=== PATIENT | male | born 1975 | race Caucasian/White ===

== ENCOUNTER 2023-12-23 18:27 | Observation (INO) | payer SELFPAY ==
[2023-12-23] VITALS (10 sets, daily range): BP systolic 144–218; BP diastolic 88–123; PULSE 58–102; RESP 15–18; TEMP 36.7–37.1; O2SAT 96–100; BMI 30.7
--- NOTE | 2023-12-23 18:27 | ECG_ITS ---
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 Measurements Intervals [place] Rate: 84 P: 34 [place]: 127 QRS: -34 QRSD: 88 T: 48 QT: 341 QTc: 404 Interpretive Statements SINUS RHYTHM LEFT AXIS DEVIATION [QRS AXIS < -30] SEPTAL MYOCARDIAL INFARCTION , OF INDETERMINATE AGE [40+ ms Q WAVE IN V1/V2] No previous ECG available for comparison Electronically Signed On 12-25-2023 00:05:48 CDT by Beatrice Preciado M.D. [email or web address]
--- NOTE | 2023-12-23 18:28 | XRR_ITS ---
PROCEDURE INFORMATION: Exam: XR Chest Exam date and time: 12/23/2023 6:49 PM Age: 48 years old Clinical indication: Chest pressure; Patient HX: Chest pain; Hypertension; Upper ext numbness TECHNIQUE: Imaging protocol: Radiologic exam of the chest. Views: 1 view. COMPARISON: No relevant prior studies available. FINDINGS: Lungs: Lungs appear clear without consolidation. Pleural spaces: No pneumothorax or pleural effusion. Heart/Mediastinum: Normal size of the cardiac silhouette. Normal mediastinal contours. Bones/joints: Mild degenerative changes at the acromioclavicular joints. Minimal scattered spinal degenerative change. XR/XR chest 1V portable [id number] IMPRESSION: No radiographically apparent acute cardiopulmonary disease.
[2023-12-23] MEDS: nitroglycerin 0.4 mg sublingual Tablet SUBLINGUAL (18:44)
[2023-12-23] MEDS: aspirin 81 mg Chew Tablet 324 MG PO (18:44)
--- NOTE | 2023-12-23 18:47 | ED_ITS ---
HPI - Chest Pain 2 General: Chief Complaint: Chest Pain Stated Complaint: High B/P, arm numbness sent by [facility] Time Seen by Provider: 12/23/23 18:29 Source: patient Mode of arrival: ambulatory Limitations: no limitations History of Present Illness: 48-year-old male with history of hyperte nsion states his blood pressure has been running high lately actually increased his benazepril from 20-40 he states that throughout the day today though he has been having some pressure type pain he says an upper chest with some numbness down both arms. He states never had any feelings like this in the past no history of known heart disease he has been hypertensive today as well blood pressure at urgent care was over 200 he had had an EKG there showed some lateral T wave inversions and sent here. States he still having some slight pressure pain he rates a 2 out of 10 denies any dyspnea Associated symptoms: Deny abdominal pain, dyspnea, fever(s), nausea or vomiting Related Data Home Medications Medication Instructions Recorded Confirmed benazepril 20 mg tablet mg PO 12/23/23 12/23/23 Allergies Allergy/AdvReac Type Severity Reaction Status Date / Time No Known Allergies Allergy Verified 12/23/23 18:34 Review of Systems 2 Const: Denies: fever(s), chills, body aches or change in appetite ENMT: Denies: throat pain or dental pain Card: Reports: chest pain Resp: Denies: dyspnea GI: Denies: abdominal pain, nausea, vomiting or diarrhea Musc: Denies: neck pain or back pain Skin/Breast: Denies: rash Neuro: Denies: headache(s) PFSH ED 2 PFSH: Social History Smoking and tobacco/nicotine status: current some day tobacco/nicotine user (marijuana) Physical Exam 2 Const: COMMON NORMALS: no acute distress, patient oriented x3 and healthy appearing HENMT: COMMON NORMALS: normocephalic and atraumatic HEAD & SCALP: n ormocephalic and atraumatic Eye: COMMON NORMALS: EOMs intact bilaterally Neck/C-Spine: COMMON NORMALS: full ROM and supple Chest: COMMONS NORMALS: normal inspection of the chest Resp: COMMON NORMALS: normal respiratory effort, No retractions, No use of accessory muscles and clear to auscultation bilaterally AUSCULTATION: clear to auscultation bilaterally Cardio: COMMON NORMALS: regular rate, regular rhythm and No murmurs present (Cardio) RATE: regular rate RHYTHM: regular rhythm Extremity: COMMON NORMALS: normal to inspection and full ROM Neuro: COMMON NORMALS: patient oriented x3, moves all extremities and no focal motor deficits Psych: COMMON NORMALS: mental status grossly normal, Normal thought process present and cooperative THOUGHT PROCESS: Normal thought process present Skin: COMMON NORMALS: no rashes or lesions noted and no wounds GENERAL SKIN EXAM: no rashes or lesions noted Course 2 Vital Signs: Vital signs: Vital Signs Temperature 98.7 F 12/23/23 18:34 Pulse Rate 71 12/23/23 21:00 Respiratory Rate 15 12/23/23 21:00 Blood Pressure 146/90 12/23/23 21:00 Pulse Oximetry 96 12/23/23 21:00 Oxygen Delivery Me thod Room Air 12/23/23 21:00 MDM - Chest Pain Medical Decision Making Patient presents here with chest pain his delta troponin is positive with NSTEMI will give him Lovenox I spoke to cardiology along with hospitalist will admit Medical Records I reviewed the patient's medical records. Lab Data I reviewed the patient's lab results. 12/23/23 18:45 12/23/23 18:45 Radiology Impressions Chest X-Ray 12/23/23 18:28 IMPRESSION: No radiographically apparent acute cardiopulmonary disease. Laboratory Results WBC 8.08 10^3/uL (3.29-11.43) 12/23/23 18:45 RBC 5.05 10^6/uL (3.85-5.65) 12/23/23 18:45 Hgb 16.00 g/dL (11.27-16.99) 12/23/23 18:45 Hct 46.2 % (37-53) 12/23/23 18:45 MCV 91.5 fl (82-101) 12/23/23 18:45 MCH 31.7 pg (27-33) 12/23/23 18:45 MCHC 34.6 g/dL (30-55) 12/23/23 18:45 RDW 11.9 % (12.1-15.1) L 12/23/23 18:45 Plt Count 314 10^3/cmm (157-399) 12/23/23 18:45 MPV 8.5 fL (7.4-10.4) 12/23/23 18:45 Neut % (Auto) 47.5 % 12/23/23 18:45 Lymph % (Auto) 36.1 % 12/23/23 18:45 [place] % (Auto) 11.6 % 12/23/23 18:45 Eos % (Auto) 3.6 % 12/23/23 18:45 Baso % (Auto) 1.0 % 12/23/23 18:45 Neut # (Auto) 3.83 10^3/uL (1.8-7.7) 12/23/23 18:45 Lymph # (Auto) 2.9 10^3/uL (0.8-4.8) 12/23/23 18:45 [place] # (Auto) 0.9 10^3/uL (0.2-0.9) 12/23/23 18:45 Eos # (Auto) 0.3 10^3/uL (0.0-0.8) 12/23/23 18:45 Baso # (Auto) 0.1 10^3/uL (0.0-0.1) 12/23/23 18:45 Nucleated RBC % (auto) 0 % 12/23/23 18:45 Nucleated RBCs # 0.0 /100WBC 12/23/23 18:45 PT 11.90 SECONDS (12.1-14.9) L 12/23/23 18:45 INR 0.85 (0.8-1.2) 12/23/23 18:45 Sodium 137 mmol/L (136-145) 12/23/23 18:45 Potassium 4.2 mmol/L (3.5-5.1) 12/23/23 18:45 Chloride 97 mmol/L (98-107) L 12/23/23 18:45 Carbon Dioxide 29 mmol/L (22-29) 12/23/23 18:45 Anion Gap 15.2 (5-19) 12/23/23 18:45 BUN 14 mg/dL (6-20) 12/23/23 18:45 Creatinine 1.0 mg/dL (0.7-1.2) 12/23/23 18:45 GFR Calculation 79.4 mL/min (90-130) L 12/23/23 18:45 Glucose 121 mg/dL (65-115) H 12/23/23 18:45 Calculated Osmolality 286 mOsm/kg (285-295) 12/23/23 18:45 Calcium 9.6 mg/dL (8.5-10.5) 12/23/23 18:45 Total Bilirubin 0.3 mg/dL (0.15-1.2) 12/23/23 18:45 AST 24 U/L (0-40) 12/23/23 18:45 ALT 48 U/L (0-41) H 12/23/23 18:45 Alkaline Phosphatase 68 U/L (40-130) 12/23/23 18:45 Troponin T Baseline 12 ng/L (0-15) 12/23/23 18:45 Troponin T 120 Minute 26.71 ng/L (0-15) H 12/23/23 20:42 Delta Troponin T 14.71 ABS# (0-10) H* 12/23/23 20:42 Total Protein 7.9 g/dL (6.6-8.7) 12/23/23 18:45 Albumin 5.0 g/dL (3.5-5.2) 12/23/23 18:45 Globulin 2.9 g/dL (1.3-4.6) 12/23/23 18:45 Lipase 47 U/L (13-60) 12/23/23 18:45 All radiology interpretation(s) finalized by discharge EKG Data EKG 1: I personally reviewed and interpreted this EKG as follows: EKG interpretation date: 12/23/23 EKG interpretation time: 18:27 Interpretation: nsr hr [address] elevation qrs 88 qtc 382 Discharge Plan Discharge Patient Disposition: Admitted As Inpatient Clinical Impression: Non-ST elevation [place] (NSTEMI) Condition: Stable Prescriptions: No Action benazepril 20 mg tablet PO Referrals: Tessa Nair MD [Primary Care Provider] - Coding Level of Care Code ED Certified Indoor Environmentalist for Chg Moustapha
[2023-12-23 19:00] LABS: Basophils # 0.1 10^3/uL (0.0-0.1); Eosinophils # 0.3 10^3/uL (0.0-0.8); Eosinophils % 3.6 %; Hematocrit 46.2 % (37-53); Lymphocytes # 2.9 10^3/uL (0.8-4.8); Lymphocytes % 36.1 %; Mean Corpuscular HGB Conc 34.6 g/dL (30-55); Mean Corpuscular Hemoglobin 31.7 pg (27-33); Mean Corpuscular Volume 91.5 fl (82-101); Mean Platelet Volume 8.5 fL (7.4-10.4); Monocytes # 0.9 10^3/uL (0.2-0.9); Monocytes % 11.6 %; Neutrophils # 3.83 10^3/uL (1.8-7.7); Neutrophils % 47.5 %; Nucleated Red Blood Cells % 0 %; Platelet Count 314 10^3/cmm (157-399); Red Blood Count 5.05 10^6/uL (3.85-5.65); Red Cell Distribution Width 11.9 % (12.1-15.1); White Blood Count 8.08 10^3/uL (3.29-11.43)
[2023-12-23 19:12] LABS: INR 0.85 (0.8-1.2)
[2023-12-23 19:17] LABS: Troponin(5th) Baseline 12 ng/L (0-15)
[2023-12-23 19:19] LABS: Alanine Aminotransferase 48 U/L (0-41); Alkaline Phosphatase 68 U/L (40-130); Aspartate Amino Transferase 24 U/L (0-40); Blood Urea Nitrogen 14 mg/dL (6-20); Calcium 9.6 mg/dL (8.5-10.5); Carbon Dioxide 29 mmol/L (22-29); Chloride 97 mmol/L (98-107); Creatinine Clr Calc Pharmacy 104.4321; Globulin 2.9 g/dL (1.3-4.6); Glomerular Filtration Rate 79.4 mL/min (90-130); Glucose 121 mg/dL (65-115); Lipase 47 U/L (13-60); Osmolality Calculated 286 mOsm/kg (285-295); Sodium 137 mmol/L (136-145); Total Bilirubin 0.3 mg/dL (0.15-1.2); Total Protein 7.9 g/dL (6.6-8.7)
[2023-12-23 19:29] LABS: Anion Gap 15.2 (5-19); Potassium 4.2 mmol/L (3.5-5.1)
--- NOTE | 2023-12-23 20:28 | ECG_ITS ---
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 Measurements Intervals [place] Rate: 67 P: 35 [place]: 138 QRS: -16 QRSD: 86 T: 152 QT: 405 QTc: 430 Interpretive Statements SINUS RHYTHM ST DEVIATION AND MODERATE T-WAVE ABNORMALITY, CONSIDER ANTEROLATERAL ISCHEMIA [-0.1+ mV T-WAVE IN V3-V6] Compared to ECG 12/23/2023 18:27:22 T-wave abnormality now present Possible ischemia now present Left-axis deviation no longer present Myocardial infarct finding no longer present Electronically Signed On 12-26-2023 00:50:22 CDT by Beatrice Preciado M.D. [id number]
[2023-12-23 21:03] LABS: Troponin 5 2HR 26.71 ng/L (0-15)
[2023-12-23 21:15] LABS: Troponin 5 2HR Delta 14.71 ABS# (0-10)
[2023-12-23] MEDS: enoxaparin 100 mg/mL Syringe SUBCUT (21:28)
--- NOTE | 2023-12-23 21:30 | P.HP_ITS ---
Providers/Chief Complaint 2 Primary Care Provider: Tessa Nair MD Chief Complaint: High B/P, arm numbness sent by History of Present Illness Rhett Dhaliwal is a 48 year old male with a past medical history significant for hypertension who presents emergency department with chest pressure. Patient reports initial symptoms started . They have been intermittent with about 5 episodes occurring since that time. He describes episodes as chest pressure sensation with numbness radiating down bilateral upper extremities. He states the pressure sensations feels like is behind his clavicles. He was seen by [facility] walk-in clinic where he was found to be hypertensive for which his URIEL inhibitor dose was doubled. Despite this, symptoms persisted for which he went to [facility] urgent care due to [facility] care being closed. At urgent care, he was found to have persistently elevated blood pressure with a blood pressure of 191/121. He was directed to the emergency department. Patient denies prior known history of coronary disease. Denies prior ischemic workup. In the emergency department, he was found to be markedly hypertensive with initial blood pressure 220/140. Baseline high-sensitivity troponin resulted at 12 ng/L with 2-hour troponin resulting at 26.71 ng/L resulting in a delta troponin of 14.71. Patient was treated with Plavix load and therapeutic Lovenox. Cardiology consulted with the evaluation pending. Review of Systems 2 Narrative: A complete review of systems was obtained and is negative except as stated in HPI. Medications/Allergies Home Medications Medication Instructions Recorded Confirmed Last Taken Type benazepril 20 mg tablet mg PO 12/23/23 12/23/23 Unknown History Allergies Allergy/AdvReac Type Severity Reaction Status Date / Time No Known Allergies Allergy Verified 12/23/23 18:34 PFSH Acute 2 PFSH: Medical History (Updated 12/23/23 @ 21:49 by Giorgi Ruff MD) Hypertension Surgical History (Updated 12/23/23 @ 21:50 by Giorgi Ruff MD) No significant past surgical history Family History (Updated 12/23/23 @ 21:50 by Giorgi Ruff MD) Father Hypertension Mother Hypertension Social History (Updated 12/23/23 @ 21:50 by Giorgi Ruff MD) Smoking and tobacco/nicotine status: never used tobacco/nicotine (marijuana) Alcohol intake: current Substance/Drug Use: never 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 Vitals/I&O/Wt Last Vital Signs Temp 98.7 F 12/23/23 18:34 Pulse 71 12/23/23 21:00 Resp 15 12/23/23 21:00 BP 146/90 12/23/23 21:00 Pulse Ox 96 12/23/23 21:00 O2 Del Method Room Air 12/23/23 21:00 Weight last 48 hrs Weight 97.069 kg Physical Exam 2 Narrative: General: Patient is awake and alert. Head: Normocephalic. Atraumatic. EOM intact. Neck: No JVD. Cardiovascular: RRR. No gallops. No murmurs. No peripheral edema. Lungs: Clear to auscultation, no use of accessory muscles, no crackles or wheezes. Skin: No jaundice. No rashes. Abdomen: Normal bowel sounds, abdomen soft and nontender. Genito Urinary: Genital exam not performed since complaints not related. Rectal: Rectal exam not performed since no symptoms indicated blood loss. Extremities: No cyanosis or clubbing. Musculoskeletal: 5/5 strength, normal range of motion, no swollen or erythematous joints. Neurological: Moves all 4 extremities. No myoclonus. Data 12/23/23 18:45 12/23/23 18:45 A&P Assessment and plan (1) Non-ST elevation [place] (NSTEMI): Chest pain with positive delta troponin Status post Plavix load in ED Start aspirin Start statin Start therapeutic Lovenox Check lipids and A1c for restratification Trend troponin Continuous telemetry monitoring Complete echocardiogram Consult cardiology pending (2) Hypertensive urgency: Blood pressure improving since presentation Continue formulary URIEL inhibitor May need additional oral agent pending clinical course Hydralazine as needed (3) Transaminitis: Very mild, suspect related to beer intake Plan DVT prophylaxis: Lovenox CODE STATUS: Full code Attestations 2 Medical Necessity Statement*: Patient presents with chest pain found to have positive delta troponin with expected hospitalization not to cross 2 midnights for workup with serial troponins, echo, and treatment of acute coronary syndrome with IV heparin, antiplatelet, statin, cardiology evaluation and supportive care. Coding Level of Care Code Acute Code for [facility] Fwd Diagnoses Non-ST elevation [place] (NSTEMI) I21.4 Hypertensive urgency I16.0 Transaminitis R74.01
[2023-12-23] MEDS: clopidogrel 300 mg Tablet PO (21:43)
--- NOTE | 2023-12-23 22:09 | P.CONIM_ITS ---
Providers/Reason For Consult 2 Consulting Physician/Specialty*: TONY Preciado MD/cardiology Reason for Consult*: Patient with a prolonged episode of the chest pain Requesting Physician: Dr. Ruff Attending Physician: Giorgi Ruff MD Primary Care Provider: Tessa Nair MD History of Present Illness History of Present Illness Rhett Dhaliwal is a 48 year old male presenting with numbness in both arms and elevated blood pressure. The patient has experienced episodes of arm numbness, initially noted on morning, each lasting approximately an hour, with similar episodes occurring on Monday morning and Monday evening. No chest, neck, or back pain was reported. He denied shortness of breath, but attributes some fogginess and lightheadedness over the past two weeks. These symptoms began after returning from a trip to [place]. Although the patient has been historically hypertensive since his late 30s, he only commenced antihypertensive medication six months ago, resulting in well-controlled blood pressure readings. The episodes of numbness typically resolved spontaneously, but a nitroglycerin tablet provided immediate relief during the latest episode in the emergency setting. He visited a walk-in clinic on Monday, where his antihypertensive medication dosage was increased without further cardiac evaluation. No prior history of heart-related events was noted, although his mother has hypertension. The patient admitted to regular beer consumption since adolescence, maintaining a habit of consuming six beers nightly, although he is endeavoring to reduce his intake following medical advice. No history of smoking or high cholesterol needing pharmacological intervention was reported. No significant family history. No smoking abuse or any other substance abuse. Review of Systems 2 Narrative: CONSTITUTIONAL: No fever or chills. EYES: No blurring of vision or other visual disturbances lately. ENT: No hoarseness of voice, auditory disturbances or sore throat. CARDIOVASCULAR: As mentioned above. RESPIRATORY: No significant cough. GASTROINTESTINAL: No hematemesis or melena. GENITOURINARY: No dysuria or hematuria. INTEGUMENTARY: No skin rashes or history of skin cancer. NEURO: No transient ischemic attacks or amaurosis. PSYCHIATRIC: No history of psychosis or major depression. HEMATOLOGIC: No bleeding disorders or significant anemia. ENDOCRINE: No history of polyuria or polydipsia. MUSCULOSKELETAL: No recent joint pain or swelling. ALLERGY/IMMUNOLOGY: As mentioned above. Medications/Allergies Home Medications Medication Instructions Recorded Confirmed Last Taken Type benazepril 20 mg tablet 20 mg PO BID 12/23/23 12/23/23 Unknown History Allergies Allergy/AdvReac Type Severity Reaction Status Date / Time No Known Allergies Allergy Verified 12/23/23 18:34 Current Medications Generic Name Dose Route Start Last Admin Trade Name Freq PRN Reason Stop Dose Admin Nitroglycerin 0.4 mg 12/23/23 18:28 12/23/23 18:44 Nitroglycerin 0.4 Mg Sublingual Tablet SUBLINGUAL 0.4 mg Q5M PRN Administration CHEST PAIN PFSH Acute 2 PFSH: Medical History Hypertension Surgical History No significant past surgical history Family History Father Hypertension Mother Hypertension Social History Smoking and tobacco/nicotine status: never used tobacco/nicotine (marijuana) Alcohol intake: current Substance/Drug Use: never 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 Vitals/I&O/Wt Last Vital Signs Temp 98.7 F 12/23/23 18:34 Pulse 67 12/23/23 21:37 Resp 18 12/23/23 21:37 BP 150/88 12/23/23 21:37 Pulse Ox 99 12/23/23 21:37 O2 Del Method Room Air 12/23/23 21:37 Weight last 48 hrs Weight 214 lb Physical Exam 2 Narrative: GENERAL: The patient is alert and oriented times three. Not in any acute distress. HEENT: No significant pallor, icterus or lymphadenopathy.Oral cavity: There are no mucous membrane lesions. NECK: Trachea appears to be central. No masses noted. No JVD or thyromegaly appreciated. RESPIRATORY: Chest is symmetrical. No intercostals muscle retraction or any accessory muscle activation. There is no chest wall tenderness. Breath sounds are heard bilaterally. No rales or rhonchi heard. No evidence of any consolidation. BREASTS: Deferred. HEART: The heart sounds are normal. No S3 or S4. No significant murmurs. No pericardial rub ABDOMEN: No vessel pulsations or distention. No tenderness. No organomegaly appreciated. Bowel sounds are normally heard. : Deferred. RECTAL: Deferred. LYMPHATIC: No lymphadenopathy noted in the neck. EXTREMITIES: No edema or cyanosis. No clubbing. MUSCULOSKELETAL: No acute joint deformities or swelling SKIN: There are no significant rashes or ecchymosis NEUROPSYCHIATRIC: The patient is alert and oriented x3. Appears to be in a good mood. No tremors or rigidity noted. Data 12/23/23 18:45 12/23/23 18:45 Other Labs: Laboratory Last Values WBC 8.08 10^3/uL (3.29-11.43) 12/23/23 18:45 RBC 5.05 10^6/uL (3.85-5.65) 12/23/23 18:45 Hgb 16.00 g/dL (11.27-16.99) 12/23/23 18:45 Hct 46.2 % (37-53) 12/23/23 18:45 MCV 91.5 fl (82-101) 12/23/23 18:45 MCH 31.7 pg (27-33) 12/23/23 18:45 MCHC 34.6 g/dL (30-55) 12/23/23 18:45 RDW 11.9 % (12.1-15.1) L 12/23/23 18:45 Plt Count 314 10^3/cmm (157-399) 12/23/23 18:45 MPV 8.5 fL (7.4-10.4) 12/23/23 18:45 Neut % (Auto) 47.5 % 12/23/23 18:45 Lymph % (Auto) 36.1 % 12/23/23 18:45 [place] % (Auto) 11.6 % 12/23/23 18:45 Eos % (Auto) 3.6 % 12/23/23 18:45 Baso % (Auto) 1.0 % 12/23/23 18:45 Neut # (Auto) 3.83 10^3/uL (1.8-7.7) 12/23/23 18:45 Lymph # (Auto) 2.9 10^3/uL (0.8-4.8) 12/23/23 18:45 [place] # (Auto) 0.9 10^3/uL (0.2-0.9) 12/23/23 18:45 Eos # (Auto) 0.3 10^3/uL (0.0-0.8) 12/23/23 18:45 Baso # (Auto) 0.1 10^3/uL (0.0-0.1) 12/23/23 18:45 Nucleated RBC % (auto) 0 % 12/23/23 18:45 Nucleated RBCs # 0.0 /100WBC 12/23/23 18:45 PT 11.90 SECONDS (12.1-14.9) L 12/23/23 18:45 INR 0.85 (0.8-1.2) 12/23/23 18:45 Sodium 137 mmol/L (136-145) 12/23/23 18:45 Potassium 4.2 mmol/L (3.5-5.1) 12/23/23 18:45 Chloride 97 mmol/L (98-107) L 12/23/23 18:45 Carbon Dioxide 29 mmol/L (22-29) 12/23/23 18:45 Anion Gap 15.2 (5-19) 12/23/23 18:45 BUN 14 mg/dL (6-20) 12/23/23 18:45 Creatinine 1.0 mg/dL (0.7-1.2) 12/23/23 18:45 GFR Calculation 79.4 mL/min (90-130) L 12/23/23 18:45 Glucose 121 mg/dL (65-115) H 12/23/23 18:45 Calculated Osmolality 286 mOsm/kg (285-295) 12/23/23 18:45 Calcium 9.6 mg/dL (8.5-10.5) 12/23/23 18:45 Total Bilirubin 0.3 mg/dL (0.15-1.2) 12/23/23 18:45 AST 24 U/L (0-40) 12/23/23 18:45 ALT 48 U/L (0-41) H 12/23/23 18:45 Alkaline Phosphatase 68 U/L (40-130) 12/23/23 18:45 Troponin T Baseline 12 ng/L (0-15) 12/23/23 18:45 Troponin T 120 Minute 26.71 ng/L (0-15) H 12/23/23 20:42 Delta Troponin T 14.71 ABS# (0-10) H* 12/23/23 20:42 Total Protein 7.9 g/dL (6.6-8.7) 12/23/23 18:45 Albumin 5.0 g/dL (3.5-5.2) 12/23/23 18:45 Globulin 2.9 g/dL (1.3-4.6) 12/23/23 18:45 Lipase 47 U/L (13-60) 12/23/23 18:45 EKG 1: My Interpretation: Normal sinus rhythm with diffuse T wave changes in the anterolateral leads. Minimal left axis deviation. T wave changes appears to be fluctuating A&P Assessment and plan (1) Acute coronary syndrome: Patient is a clinical features are consistent with acute coronary syndrome causing [id number] myocardial infarction. Hemodynamically seems to be stable. He may have treated with the subcu Lovenox, aspirin, 300 mg of Plavix followed by 70 mg Plavix daily, statin and a low-dose of beta-bakari. (2) Benign hypertension: The antihypertensive medications need to be optimized. (3) Dyslipidemia: The cholesterol level is not known. May do a lipid profile on the blood in the lab. I may start him on Lipitor 40 mg p.o. daily. (4) History of alcohol abuse: Strongly advised to quit drinking. Plan Go ahead and do an echocardiogram to evaluate the LV function and rule out any other pathology. Serial cardiac enzymes and EKGs. Continue therapeutic dose of subcu Lovenox, p.o. Plavix, aspirin, beta-bakari and statin. Based on the clinical progress and the results of the above, further recommendations will be made. Thank you for the opportunity to evaluate this patient and make these recommendations Consult Attestations 2 Medical Necessity Statement: Patient requires continued hospital stay for close monitoring and further management Coding Level of Care Code 49892 Diagnoses Acute coronary syndrome I24.9 Benign hypertension I10 Dyslipidemia E78.5 History of alcohol abuse F10.11
[2023-12-23 22:30] LABS: Chol HDL Ratio 4.65 mg/dL (1.0-5.00); Cholesterol 256 mg/dL (0-200); HDL Cholesterol 55 mg/dL (60-100); LDL Cholesterol Calculated 157 mg/dL (50-129); LDL HDL Ratio 2.85 RATIO (0.00-3.22); Triglycerides 221 mg/dL (0-150)
[2023-12-23 22:33] LABS: Estmated Average Glucose 111; Hemoglobin A1C 5.5 % (4.0-6.0)
[2023-12-24] VITALS (57 sets, daily range): BP systolic 104–174; BP diastolic 65–106; PULSE 60–88; RESP 11–23; TEMP 36.6–37.3; O2SAT 94–98
--- NOTE | 2023-12-24 00:14 | ECG_ITS ---
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 Measurements Intervals [place] Rate: 71 P: 38 [place]: 140 QRS: -12 QRSD: 92 T: 198 QT: 404 QTc: 440 Interpretive Statements SINUS RHYTHM ST DEVIATION AND MODERATE T-WAVE ABNORMALITY, CONSIDER ANTEROLATERAL ISCHEMIA [-0.1+ mV T-WAVE IN V3-V6] Compared to ECG 12/23/2023 20:53:09 No significant changes Electronically Signed On 12-26-2023 00:50:16 CDT by Beatrice Preciado M.D. [email or web address]
[2023-12-24 04:33] LABS: Troponin 5 6HR 19.51 ng/L (0-15); Troponin 5 6HR Delta 7.51 ng/L (0-12)
[2023-12-24] MEDS: enoxaparin 100 mg/mL Syringe SUBCUT ×2 (08:21→20:41)
[2023-12-24] MEDS: aspirin 81 mg EC Tablet PO (08:22)
[2023-12-24] MEDS: lisinopril 20 mg Tablet PO ×2 (08:22→18:11)
[2023-12-24] MEDS: metoprolol tartrate 25 mg Tablet 12.5 MG PO (08:22)
--- NOTE | 2023-12-24 12:25 | PM.PN ---
Subjective Subjective: He reports he is doing better. Any pain or discomfort has resolved. He is spoken with cardiology, based on assessment and his condition they have plan for further assessment by coronary angiography this afternoon. Vitals/I&O/Wt Last Vital Signs Temp 97.9 F 12/24/23 11:08 Pulse 71 12/24/23 11:08 Resp 15 12/24/23 11:08 BP 156/102 12/24/23 11:08 Pulse Ox 97 12/24/23 11:08 O2 Del Method Room Air 12/24/23 11:08 12/23/23 12/24/23 12/24/23 22:59 06:59 14:59 Intake Total 360 / 360 Output Total 0 / 0 Balance 0 / 0 360 / 360 Weight last 48 hrs Weight 99.337 kg Weight 97.069 kg Weight 97.069 kg Physical Exam Const: COMMON NORMALS: patient oriented x3 and alert GENERAL APPEARANCE: cooperative ORIENTATION/CONSCIOUSNESS: Yes awake OTHER: Pleasant, conversant, in good spirits. HENMT: COMMON NORMALS: oropharynx normal Neck/C-Spine: COMMON NORMALS: no JVD Resp: COMMON NORMALS: normal respiratory effort and clear to auscultation bilaterally AUSCULTATION: clear to auscultation bilaterally Cardio: COMMON NORMALS: no JVD, regular rhythm, S1 normal heart sound present, S2 normal heart sound present and No murmurs present (Cardio) RHYTHM: regular rhythm HEART SOUNDS: S1 normal heart sound present and S2 normal heart sound present GI: COMMON NORMALS: Normal to inspection, nondistended, normoactive bowel sounds present, Soft to palpation and non-tender PALPATION: Yes Soft to palpation Extremity: COMMON NORMALS: no joint enlargement and no pedal edema Neuro: COMMON NORMALS: patient oriented x3 and moves all extremities SENSORIUM/ORIENTATION: Yes alert Skin: COMMON NORMALS: no rashes or lesions noted GENERAL SKIN EXAM: no rashes or lesions noted Data 12/23/23 18:45 12/23/23 18:45 A&P Assessment and plan (1) Non-ST elevation SD (NSTEMI): Reviewed vitals, CBC, INR, CMP, troponin series, lipase,CXR, echocardiogram, cardiology note. 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 Resume Plavix. Continues on aspirin, statin, beta-bakari, continues with therapeutic anticoagulation. Monitor for risk of bleeding with anticoagulation, reassess blood counts. Continue to monitor on telemetry with NSTEMI with risk of arrhythmia. Follow-up coronary angiography. (2) Hypertensive urgency: Reviewed blood pressure, with improvement to 156/102. Continue lisinopril. Metoprolol. Add amlodipine. Blood pressure improving since presentation Continue formulary URIEL inhibitor May need additional oral agent pending clinical course Hydralazine as needed (3) Transaminitis: Very mild, possibly secondary to hypertensive urgency versus suspected related to beer intake Repeat CMP. Follow-up with PCP. Plan DVT prophylaxis: Lovenox CODE STATUS: Full code Attestations Medical Necessity Statement*: Continue hospitalization for assessment management of NSTEMI, optimization of blood pressure control after hypertensive urgency. and High MDM includes amount and/or complexity of data reviewed/ordered [ resulted lab(s)/test(s), ordered lab(s)/test(s) and other healthcare professional discussion] and described risk of complication, morbidity or mortality of management as documented Diagnoses Non-ST elevation SD (NSTEMI) I21.4 Hypertensive urgency I16.0 Transaminitis R74.01
--- NOTE | 2023-12-24 13:52 | P.PN_ITS ---
Subjective 2 Subjective: The patient has any recurrence of chest pain or arm numbness, since last night. The vitals are stable. The echocardiogram revealed normal LV size and ejection fraction. Mild card ventricular to light hypertrophy. No significant wall motion normalities. Features of grade 1 left ventricular ejection fraction's function. Medications: Medication Review Details: Current Medications Acetaminophen (Acetaminophen 325 Mg Tablet) 650 mg PO Q6H PRN PRN Reason: Mild/Mod Pain Or Temp >/= 101 Amlodipine Besylate (Amlodipine 5 Mg Tablet) 5 mg PO DAILY [facility] Aspirin (Aspirin 81 Mg Ec Tablet) 81 mg PO DAILY [facility] Last Admin: 12/24/23 08:22 Dose: 81 mg Atorvastatin Calcium (Atorvastatin 40 Mg Tablet) 40 mg PO BEDTIME VERONICA Clopidogrel Bisulfate (Clopidogrel 75 Mg Tablet) 75 mg PO DAILY [facility] Diphenhydramine HCl (Diphenhydramine 50 Mg Capsule) 50 mg PO ONCE ONE Stop: 12/24/23 14:01 Enoxaparin Sodium (Enoxaparin 100 Mg/Ml Syringe) 100 mg 1 mg/kg (100 mg) SUBCUT Q12H [facility] Last Admin: 12/24/23 08:21 Dose: 100 mg Hydralazine HCl (Hydralazine 20 Mg/Ml Inj 1 Ml) 10 mg IVP Q4H PRN PRN Reason: SBP>180mmHg or DBP>110mmHG Sodium Chloride (Sodium Chloride 0.9%) 1,000 mls @ 50 mls/hr IV .Q20H ONE Stop: 12/25/23 09:59 Lisinopril (Lisinopril 20 Mg Tablet) 20 mg PO BID [facility] Last Admin: 12/24/23 08:22 Dose: 20 mg Metoprolol Tartrate (Metoprolol Tartrate 25 Mg Tablet) 12.5 mg PO BID@0900,2100 [facility] Last Admin: 12/24/23 08:22 Dose: 12.5 mg Morphine Sulfate (Morphine 4 Mg/Ml Sdv 1 Ml) 2 mg IVP Q4H PRN PRN Reason: SEVERE PAIN Nitroglycerin (Nitroglycerin 0.4 Mg Sublingual Tablet) 0.4 mg SUBLINGUAL Q5M PRN PRN Reason: CHEST PAIN Last Admin: 12/23/23 18:44 Dose: 0.4 mg Ondansetron HCl (Ondansetron 2 Mg/Ml Sdv 2 Ml) 4 mg IVP Q8H PRN PRN Reason: vomiting, or N/V if npo Ondansetron HCl (Ondansetron 4 Mg Tablet) 4 mg PO Q8H PRN PRN Reason: NAUSEA Vitals/I&O/Wt Last Vital Signs Temp 97.9 F 12/24/23 11:08 Pulse 71 12/24/23 11:08 Resp 15 12/24/23 11:08 BP 156/102 12/24/23 11:08 Pulse Ox 97 12/24/23 11:08 O2 Del Method Room Air 12/24/23 11:08 12/23/23 12/24/23 12/24/23 22:59 06:59 14:59 Intake Total 360 / 360 Output Total 0 / 0 Balance 0 / 0 360 / 360 Weight last 48 hrs Weight 219 lb Weight 214 lb Weight 214 lb Physical Exam 2 Narrative: GENERAL: The patient is alert and oriented times three. Not in any acute distress. HEENT: No significant pallor, icterus or lymphadenopathy.Oral cavity: There are no mucous membrane lesions. NECK: Trachea appears to be central. No masses noted. No JVD or thyromegaly appreciated. RESPIRATORY: Chest is symmetrical. No intercostals muscle retraction or any accessory muscle activation. There is no chest wall tenderness. Breath sounds are heard bilaterally. No rales or rhonchi heard. No evidence of any consolidation. BREASTS: Deferred. HEART: The heart sounds are normal. No S3 or S4. No significant murmurs. No pericardial rub ABDOMEN: No vessel pulsations or distention. No tenderness. No organomegaly appreciated. Bowel sounds are normally heard. : Deferred. RECTAL: Deferred. LYMPHATIC: No lymphadenopathy noted in the neck. EXTREMITIES: No edema or cyanosis. No clubbing. MUSCULOSKELETAL: No acute joint deformities or swelling SKIN: There are no significant rashes or ecchymosis NEUROPSYCHIATRIC: The patient is alert and oriented x3. Appears to be in a good mood. No tremors or rigidity noted. Data 12/23/23 18:45 12/23/23 18:45 Other Labs: Laboratory Last Values WBC 8.08 10^3/uL (3.29-11.43) 12/23/23 18:45 RBC 5.05 10^6/uL (3.85-5.65) 12/23/23 18:45 Hgb 16.00 g/dL (11.27-16.99) 12/23/23 18:45 Hct 46.2 % (37-53) 12/23/23 18:45 MCV 91.5 fl (82-101) 12/23/23 18:45 MCH 31.7 pg (27-33) 12/23/23 18:45 MCHC 34.6 g/dL (30-55) 12/23/23 18:45 RDW 11.9 % (12.1-15.1) L 12/23/23 18:45 Plt Count 314 10^3/cmm (157-399) 12/23/23 18:45 MPV 8.5 fL (7.4-10.4) 12/23/23 18:45 Neut % (Auto) 47.5 % 12/23/23 18:45 Lymph % (Auto) 36.1 % 12/23/23 18:45 [place] % (Auto) 11.6 % 12/23/23 18:45 Eos % (Auto) 3.6 % 12/23/23 18:45 Baso % (Auto) 1.0 % 12/23/23 18:45 Neut # (Auto) 3.83 10^3/uL (1.8-7.7) 12/23/23 18:45 Lymph # (Auto) 2.9 10^3/uL (0.8-4.8) 12/23/23 18:45 [place] # (Auto) 0.9 10^3/uL (0.2-0.9) 12/23/23 18:45 Eos # (Auto) 0.3 10^3/uL (0.0-0.8) 12/23/23 18:45 Baso # (Auto) 0.1 10^3/uL (0.0-0.1) 12/23/23 18:45 Nucleated RBC % (auto) 0 % 12/23/23 18:45 Nucleated RBCs # 0.0 /100WBC 12/23/23 18:45 PT 11.90 SECONDS (12.1-14.9) L 12/23/23 18:45 INR 0.85 (0.8-1.2) 12/23/23 18:45 Sodium 137 mmol/L (136-145) 12/23/23 18:45 Potassium 4.2 mmol/L (3.5-5.1) 12/23/23 18:45 Chloride 97 mmol/L (98-107) L 12/23/23 18:45 Carbon Dioxide 29 mmol/L (22-29) 12/23/23 18:45 Anion Gap 15.2 (5-19) 12/23/23 18:45 BUN 14 mg/dL (6-20) 12/23/23 18:45 Creatinine 1.0 mg/dL (0.7-1.2) 12/23/23 18:45 GFR Calculation 79.4 mL/min (90-130) L 12/23/23 18:45 Glucose 121 mg/dL (65-115) H 12/23/23 18:45 Estimat Average Glucose 111 12/23/23 18:45 Hemoglobin A1c 5.5 % (4.0-6.0) 12/23/23 18:45 Calculated Osmolality 286 mOsm/kg (285-295) 12/23/23 18:45 Calcium 9.6 mg/dL (8.5-10.5) 12/23/23 18:45 Total Bilirubin 0.3 mg/dL (0.15-1.2) 12/23/23 18:45 AST 24 U/L (0-40) 12/23/23 18:45 ALT 48 U/L (0-41) H 12/23/23 18:45 Alkaline Phosphatase 68 U/L (40-130) 12/23/23 18:45 Troponin T Baseline 12 ng/L (0-15) 12/23/23 18:45 Troponin T 120 Minute 26.71 ng/L (0-15) H 12/23/23 20:42 Delta Troponin T 14.71 ABS# (0-10) H* 12/23/23 20:42 Troponin T Hi Sens 6Hr 19.51 ng/L (0-15) H 12/24/23 03:44 Troponin T Hi Sens 6Hr Delta 7.51 ng/L (0-12) 12/24/23 03:44 Total Protein 7.9 g/dL (6.6-8.7) 12/23/23 18:45 Albumin 5.0 g/dL (3.5-5.2) 12/23/23 18:45 Globulin 2.9 g/dL (1.3-4.6) 12/23/23 18:45 Triglycerides 221 mg/dL (0-150) H 12/23/23 18:45 Cholesterol 256 mg/dL (0-200) H 12/23/23 18:45 LDL Cholesterol, Calc 157 mg/dL (50-129) H 12/23/23 18:45 HDL Cholesterol 55 mg/dL (60-100) L 12/23/23 18:45 LDL/HDL Ratio 2.85 RATIO (0.00-3.22) 12/23/23 18:45 Cholesterol/HDL Ratio 4.65 mg/dL (1.0-5.00) 12/23/23 18:45 Lipase 47 U/L (13-60) 12/23/23 18:45 Other data: Echocardiogram from today Normal left ventricular size and systolic function, EF 65%.. Mild left ventricular hypertrophy. Grade I/IV diastolic dysfunction (abnormal relaxation filling pattern), normal to mildly elevated filling pressures. Trace of mitral and tricuspid regurgitation Estimated pulmonary artery peak systolic pressure within normal limits. There is no pericardial effusion. There are no intracardiac masses. No similar previous studies are available for comparison A&P Assessment and plan (1) Acute coronary syndrome: Patient is a clinical features are consistent with acute coronary syndrome causing cya-GS-bodcmzeni myocardial infarction. Hemodynamically seems to be stable. He may have treated with the subcu Lovenox, aspirin, 300 mg of Plavix followed by 75 mg Plavix daily, statin and a low-dose of beta-bakari. The patient seems to be tolerating medication so far well. May continue on the current treatment. (2) Benign hypertension: The antihypertensive medications need to be optimized. I may discontinue the metoprolol and start him on carvedilol 12.5 mg p.o. twice daily (3) Dyslipidemia: Patient was found to have elevated LDL of 156. I may start the patient on high- dose of statin Nehal 80 mg Lipitor daily (4) History of alcohol abuse: Strongly advised to quit drinking. Plan Carvedilol 12.5 mg p.o. twice daily. Discontinue the metoprolol. Increase the Lipitor to 80 mg p.o. daily In view of the patient's factors and the presenting symptoms, in order to further evaluate his coronary status, a cardiac catheterization would be appropriate. This was discussed with the patient and his in detail. The risks and benefits were discussed. The risk of bleeding, hematoma, vascular injury, myocardial infarction, myocardial perforation, malignant cardiac arrhythmias ,CVA, renal failure and other concomitant complications were explained in detail. Patient understood this well and consented to proceed. We may go ahead and do scheduled this for sometime this afternoon. Based on the results of the above tests and the patient's clinical progress, further recommendations will be made. Attestations 2 Medical Necessity Statement*: Patient requires continued hospital stay for close monitoring and further management Coding Level of Care Code 91887 Diagnoses Acute coronary syndrome I24.9 Benign hypertension I10 Dyslipidemia E78.5 History of alcohol abuse F10.11
[2023-12-24] MEDS: clopidogrel 75 mg Tablet PO (14:09)
[2023-12-24] MEDS: amlodipine 5 mg Tablet PO (14:09)
[2023-12-24] MEDS: diphenhydrAMINE 50 mg Capsule PO (14:10)
[2023-12-24] MEDS: sodium chloride 0.9% 1,000 ML 50 ML IV (14:11)
--- NOTE | 2023-12-24 14:11 | XACV_ITS ---
Exam Room: [facility] Ht: 178 cm Wt: 99 kg BSA: 2.24 m2 Gender: Male : 1975 Any Known Allergies: No known allergies Exam Priority: Routine Procedure(s): Procedure Description: Diagnostic procedure Procedure Description: PCI procedure Procedure Description: Left Heart Catheterization Procedure Description: Left ventriculography Procedure Description: Drug Eluting Coronary Stent Procedure Description: Miscellaneous Procedure Description: Coronary Angiography Ozzy GRAYSON; Diagnostic Cath Status: Urgent Diagnostic Findings * There is no left main. The left left anterior descending artery and the circumflex artery were found to have separate ostia. * The ostium of the left left anterior descending artery was found to be inferior and lateral to the ostium of the circumflex artery. There is a high-grade around 85% lesion at the takeoff of the first diagonal branch. Minimal intimal irregularities were noted in the mid and distal artery. The first diagonal branch was found to have around 40% narrowing proximally, involving the ostium. * The left circumflex artery was a moderate to large caliber dominant vessel. Minimal intimal irregularities were noted in the midportion. No significant stenotic lesions.. * The right coronary artery is a nondominant vessel with no significant stenotic lesions. PCI Status: Urgent PCI Indication: New Onset Angina <= 2 months Interventional Findings * Successful PCI to mid LAD. 2 wires were inserted 1 in diagonal branch since it is a bifurcating lesion other in mid LAD. Mid LAD lesion was prepared with 2.0 x 12 mm Trek balloon, followed by deployment of [place]] [3.0x 18 mm stent posted at high MALLY of 12 mm. Stent was then post-dilated with serial dilatation of NC Euphora 3.5 x 12 at 12 MALLY in its entire length to ensure proper approximation. Excellent angiographic result with MARIA DEL CARMEN-3 flow was achieved. Diagonal branch was not pinched and widely open at the end of the case. Conclusions 1. Successful PCI to mid LAD. 2 wires were inserted 1 in diagonal branch since it is a bifurcating lesion other in mid LAD. Mid LAD lesion was prepared with 2.0 x 12 mm Trek balloon, followed by deployment of Aneesh] [3.0x 18 mm stent posted at high MALLY of 12 mm. Stent was then post-dilated with serial dilatation of NC Euphora 3.5 x 12 at 12 MALLY in its entire length to ensure proper approximation. Excellent angiographic result with MARIA DEL CARMEN-3 flow was achieved. Diagonal branch was not pinched and widely open at the end of the case. 2. 47-year-old white male with history of hypertension and untreated dyslipidemia, presenting with the complaints of bilateral arm pain and elevated troponin T. T wave changes in the anterolateral leads. Cardiac catheterization revealing high-grade lesion in the proximal to mid LAD. Separate ostia for the left anterior descending artery and circumflex artery. Nondominant right coronary artery. LVEDP of 15 mmHg. 3. Reviewed and discussed the cardiac catheterization data with Dallin Collins. It was thought to be appropriate to consider PCI of the LAD lesion. Dr. Collins took over further management of this patient at this point. Recommendations * 1-Return to inpatient for close monitoring and routine cath care 2-Risk factor modification for secondary prevention 3-Statin and aspirin 81 mg life-long, if tolerated 4-Patient was pre-loaded with 600 mg of Plavix, continue Plavix 75mg p.o. daily for at least one year. We will assess at the end of one year again to continue if further or not 5-Continue optimal medical management 6-Follow up with Dr. Preciado in four weeks, cardiology nurse practitioner in 1 week and your primary care in 15 days. Interventional RX Recommendation: PCI w/o planned CABG Diagnostic RX Recommendation: PCI w/o planned CABG LV EDP: 15 mmHg Left Ventriculography Findings: * LV gram was not performed because of the concern about the dye overload. The LVEDP was 15 mmHg. Pressures Phase:Rest AO : / ( 0 ) @ 3:50:00 PM 12 / 0 ( 0 ) @ 4:11:00 PM 133 / 91 ( 108 ) @ 4:11:00 PM 147 / 93 ( 118 ) @ 4:45:00 PM 148 / 90 ( 116 ) @ 4:45:00 PM LV : 151 / -7 / 15 @ 4:44:00 PM 156 / -9 / 15 @ 4:45:00 PM Valves Phase:DefaultPhase AV : 9.0 @ 4:37:30 PM AV Mean Gradient: 21.0 @ 4:37:30 PM Clinical Evaluation EBL: 5mL-10mL Procedural Details Procedure Consent Obtained. Current Diagnosis : NSTEMI. Admit Source: In Patient. Pre-Procedure Time Out. Identified patient by full name and date of as verbalized by the patient/guarantor. Does the consent match the physician's order: Yes. Accurate & Complete Informed Consent: Yes. Inpatient/Outpatient History & Physical on Chart: Yes. If H&P is completed, is and addenduem needed: No; If yes, is the addendum complete: N/A. Visualize and Verify Site with Patient/Guarantor: N/A. Relevant Radiology Images available: N/A. The risks, benefits, and alternatives of sedation and/or procedure were discussed by physician. The patient agrees to continue. Procedure started. [facility] Clinical Fraility Score: 3: Managing Well. Skills Auditor Indications: Worsening Angina. Chest Pain Symptom Assessment: Typical Angina Symptoms. Cardiovascular Instability: No. Correct patient, site and procedure confirmed by cath team. Current diagnosis: NSTEMI. PERRLA. Strong, equal hand global cto bilaterally. Lungs clear x 5 lobes. IV Site on Arrival: 20 gauge in the left anticubital. IV Fluids: 0.9% NaCl at KVO. 100 mL infused prior to cardiac catheterization technician. Pre Procedural Pulses: bilateral posterior tibial was 3+. Pre Procedural Pulses: bilateral dorsalis pedis was 3+. Pre Procedural Pulses: bilateral radial was 3+. Oxygen started at 3liters/min via nasal canula. right groin was prepped with chloroprep then draped in the usual sterile fashion. right radial was prepped with chloroprep then draped in the usual sterile fashion. Physician notified. Baseline sample Acquired. HR: 66 BPM. Baseline sample Acquired. HR: 69 BPM. Family updated by MD prior to the start of the procedure. Physician arrived. Physician scrubbed in. Immediate Pre-Procedure Time Out. Correct Patient: Yes; Correct Procedure: Yes; Correct Site: Yes; Correct Patient Position: Yes; Correct Supplies: Yes; Dried Flammable Prep: Yes; Blood Products Available: N/A;. Lidocaine 1% infiltrated to the right radial. Arterial access obtained. A 5 belizean Christiano catheter in over wire. Catheter removed over the exchange wire. A 5 belizean TIG catheter in over wire. Multiple views taken of left coronary artery. Catheter redirected to the RCA. Multiple views taken of right coronary artery. Catheter removed over the exchange wire. A 5 belizean AL1 catheter in over wire. Catheter removed over the exchange wire. A 5 belizean JL4 catheter in over wire. Catheter removed over the exchange wire. A 5 belizean TIG catheter in over wire. Multiple views taken of left coronary artery. Catheter removed over the exchange wire. A 5 belizean AL2 catheter in over wire. Multiple views taken of left coronary artery. Dr Collins notified. Dr Collins Arrived. Catheter removed over the exchange wire. A 5 belizean Angled Pig catheter in over wire. EDP Sample taken: LV 151/-8,15; HR: 75 BPM; SpO2: 99%. Dr Collins scubbed in. Pullback taken: LV 156/-10,15; AO 147/93(118); Mean: 21mmHg, Peak to Peak: 9mmHg, SEP: 6sec/min; HR: 77 BPM; SpO2: 100%. Catheter removed over the wire. Dr Preciado Scrubbed out. Inventory is CRD 6 FR XB 3.5 GUIDE. 6 belizean XB 3.5 guide catheter was inserted over the wire. Guide seated in the LCS. 1st Runthrough guidewire was advanced through the guide catheter to the diaganol. Runthrough guidewire was advanced through the guide catheter to lesion in the mid LAD. Guidewire advanced across lesion. Inflation number : 1 A AB TREK 2.50X12 RX BALLOON was prepped and advanced across the Mid LAD , then inflated to 12 MALLY for 0:14 seconds. Balloon out over the wire. Inflation Number : 2 A MDT R ANEESH 3.0X18 DEION -Lot Number# [id number] was prepped and advanced across the Mid LAD. The stent was deployed at 12 MALLY for 0:15 seconds. EXP 11/23/25. Stent balloon out over the wire. Results checked. Diagonal runthrough wire out. Inflation number : 3 A MDT NC EUPHORA RX [id number] BALLOON was prepped and advanced across the Mid LAD , then inflated to 10 MALLY for 0:13 seconds. Inflation number: 4 The MDT NC EUPHORA RX [id number] BALLOON was reinflated across the Mid LAD, to 12 MALLY for 0:12 seconds. Inflation number: 5 The MDT NC EUPHORA RX [id number] BALLOON was reinflated across the Mid LAD, to 12 MALLY for 0:11 seconds. Balloon out. Results checked. Wire out. Guide catheter out. Physician scrubbed out. A TR Band was successful obtaining hemostatsis at the Right Radial artery insertion site. TR band placed. Hemostasis obtained. Post Procedure: Pulses reassessed and unchanged. PERRLA. Strong, equal hand global cto bilaterally. No VTE prophylaxis required. Medication waste: Lidocaine- 18 ml Versed- 1 mg Fentanyl- 75 mcg Heparin - 3000 units Nitro 49.8 mg. Total IV fluids: 125 mL. Fluoro: 29:09. Contrast type used: Omnipaque 300 mgI/mL, 500 mL bottle. [id number]. Post-op diagnosis: Mid LAD stenosis; status post DEION. Complications: None. Estimated blood loss: 5mL-10mL. Responsiveness - Normal response to verbal stimuli; alert and oriented, PERRLA. Airway - Unaffected, no intervention required; spontaneous ventilation. Circulation: W/N/L, pulses unchanged. Nausea/Vomiting: No. Procedure completed. Patient transferred by bed to 1st floor. Access Site Site: Right Radial artery Sheath Size: 6 Fr Hemostasis Method: TR Band Hemostasis Success: Successful Procedure Medications Start: 2:55 PM Stop: 2:55 PM Medication: Fentanyl Amount: 50 mcg Route: I.V. Start: 3:03 PM Stop: 3:03 PM Medication: Versed Amount: 1 mg Route: I.V. Start: 3:00 PM Stop: 3:00 PM Medication: Versed Amount: 1 mg Route: I.V. Start: 3:05 PM Stop: 3:05 PM Medication: Fentanyl Amount: 25 mcg Route: I.V. Start: 3:08 PM Stop: 3:08 PM Medication: Verapamil Amount: 5 mg Route: I.A. Start: 3:08 PM Stop: 3:08 PM Medication: Nitrogylcerin Amount: 200 mcg Route: I.A. Start: 3:16 PM Stop: 3:16 PM Medication: Versed Amount: 1 mg Route: I.V. Start: 3:28 PM Stop: 3:28 PM Medication: Fentanyl Amount: 25 mcg Route: I.V. Start: 3:38 PM Stop: 3:38 PM Medication: Versed Amount: 1 mg Route: I.V. Start: 3:54 PM Stop: 3:54 PM Medication: Fentanyl Amount: 25 mcg Route: I.V. Start: 4:02 PM Stop: 4:02 PM Medication: Versed Amount: 1 mg Route: I.V. I, the attending physician, have reviewed and verified all procedure medications. Yes, all medications given per verbal order History/Risk Factors Hypertension: Yes Dyslipidemia: Yes Peripheral Arterial Disease (PAD): No Myocardial Infarction (NE): No Obesity: No Renal Disease: No Tobacco Use: Never Prior Interventions PCI: No CABG: No Valve Surgery: No Report Signatures Diagnostic Workflow Finalized by Dr Beatrice Preciado MD [facility] on 12/24/2023 05:47 PM Interventional Workflow Finalized by Fransisco Collins MD on 12/24/2023 04:45 PM
[2023-12-24] MEDS: carvedilol 12.5 mg Tablet PO (18:10)
[2023-12-24] MEDS: atorvastatin 40 mg Tablet 80 MG PO (20:48)
[2023-12-24] MEDS: acetaminophen 325 mg Tablet 650 MG PO (20:48)
--- NOTE | 2023-12-24 22:35 | USCV_ITS ---
Rhett Dhaliwal Age: 48 Gender: M : 1975 Exam Date: 12/24/2023 09:30 Ordering Phys: Giorgi Ruff MD Technologist: Ollie Fletcher Exam Location: [facility] – [place] Indication: chest pain BP: 174 / 103 HR: 66 Rhythm: Sinus Technical Quality: Adequate MEASUREMENTS (Male / Female) Normal Values 2D ECHO LV Diastolic Diameter PLAX 4.4 cm 4.2 - 5.9 / 3.9 - 5.3 cm IVS Diastolic Thickness 1.1 cm 0.6 - 1.0 / 0.6 - 0.9 cm IVS Systolic Thickness 1.8 cm LVPW Diastolic Thickness 1.6 cm 0.6 - 1.0 / 0.6 - 0.9 cm LVPW Systolic Thickness 2.2 cm LVOT Diameter 2.1 cm LV Ejection Fraction 2D Teich 82.1 % LV Ejection Fraction MOD 4C 70.1 % LV Ejection Fraction MOD 2C 62.2 % LV Ejection Fraction 2C AL 63.6 % LA Diameter 3.7 cm RA Systolic Volume 4C AL 22.9 ml RA Systolic Volume 4C MOD 23.5 ml LA Sys Volume AL 29.1 cm cubed LA Sys Volume Index AL 13.0 cm cubed/m squared Aorta at Sinotubular Diameter 2.6 cm IVC Diameter 1.6 cm M-MODE LA Ao Ratio MM 1.3 AV Cusp Separation MM 2.2 cm DOPPLER AV Peak Velocity 138.0 cm/s LVOT Peak Velocity 87.0 cm/s AV Area Cont Eq vti 2.4 cm squared AV Area Cont Eq pk 2.2 cm squared MV Peak Velocity 330.7 cm/s MV Area PHT 2.9 cm squared Mitral E to A Ratio 0.8 TV Peak Velocity 222.8 cm/s TR Peak Velocity 258.0 cm/s TR Peak Gradient 26.6 mmHg TR Mean Velocity 221.0 cm/s TR Mean Gradient 20.3 mmHg TR Velocity Time Integral 66.9 cm PV Peak Velocity 83.0 cm/s RV Ejection Time 0.3 s FINDINGS Left Ventricle Normal left ventricular size and systolic function, EF 65%.. Mild left ventricular hypertrophy. Grade I/IV diastolic dysfunction (abnormal relaxation filling pattern), normal to mildly elevated filling pressures. Right Ventricle The right ventricle is normal in size and function. Right Atrium The right atrium is normal in size. Left Atrium The left atrium is normal in size. Mitral Valve Trace mitral valve regurgitation. Aortic Valve No gross abnormalities noted Tricuspid Valve Trace tricuspid valve regurgitation. Estimated pulmonary artery peak systolic pressure within normal limits Pulmonic Valve No gross abnormalities noted Pericardium Normal pericardium without effusion. Aorta Normal ascending aorta dimension. IVC The inferior vena cava appears normal. CONCLUSIONS Normal left ventricular size and systolic function, EF 65%.. Mild left ventricular hypertrophy. Grade I/IV diastolic dysfunction (abnormal relaxation filling pattern), normal to mildly elevated filling pressures. Trace of mitral and tricuspid regurgitation Estimated pulmonary artery peak systolic pressure within normal limits. There is no pericardial effusion. There are no intracardiac masses. No similar previous studies are available for comparison Dr Beatrice Preciado MD [facility] (Electronically Signed) Final Date: 24 December 2023 10:09 S
[2023-12-25] VITALS (7 sets, daily range): BP systolic 119–145; BP diastolic 71–95; PULSE 65–80; RESP 16–20; TEMP 36.3–36.7; O2SAT 95–98
[2023-12-25 03:14] LABS: Basophils # 0.1 10^3/uL (0.0-0.1); Eosinophils # 0.1 10^3/uL (0.0-0.8); Eosinophils % 1.4 %; Hematocrit 44.6 % (37-53); Lymphocytes # 2.4 10^3/uL (0.8-4.8); Mean Corpuscular HGB Conc 34.1 g/dL (30-55); Mean Corpuscular Hemoglobin 30.9 pg (27-33); Mean Corpuscular Volume 90.7 fl (82-101); Mean Platelet Volume 8.7 fL (7.4-10.4); Monocytes # 0.9 10^3/uL (0.2-0.9); Monocytes % 9.8 %; Neutrophils # 5.98 10^3/uL (1.8-7.7); Neutrophils % 62.5 %; Nucleated Red Blood Cells % 0 %; Platelet Count 252 10^3/cmm (157-399); Red Blood Count 4.92 10^6/uL (3.85-5.65); Red Cell Distribution Width 11.8 % (12.1-15.1); White Blood Count 9.57 10^3/uL (3.29-11.43)
[2023-12-25 03:39] LABS: Alanine Aminotransferase 41 U/L (0-41); Albumin Level 4.3 g/dL (3.5-5.2); Alkaline Phosphatase 58 U/L (40-130); Anion Gap 14.3 (5-19); Aspartate Amino Transferase 24 U/L (0-40); Blood Urea Nitrogen 12 mg/dL (6-20); Calcium 8.7 mg/dL (8.5-10.5); Carbon Dioxide 23 mmol/L (22-29); Chloride 101 mmol/L (98-107); Creatinine Clr Calc Pharmacy 131.9734; Globulin 2.7 g/dL (1.3-4.6); Glomerular Filtration Rate 102.7 mL/min (90-130); Glucose 106 mg/dL (65-115); Osmolality Calculated 278 mOsm/kg (285-295); Potassium 4.3 mmol/L (3.5-5.1); Sodium 134 mmol/L (136-145); Total Bilirubin 0.6 mg/dL (0.15-1.2)
[2023-12-25] MEDS: clopidogrel 75 mg Tablet PO (08:18)
[2023-12-25] MEDS: amlodipine 5 mg Tablet PO (08:19)
[2023-12-25] MEDS: aspirin 81 mg EC Tablet PO (08:19)
[2023-12-25] MEDS: carvedilol 12.5 mg Tablet PO (08:19)
[2023-12-25] MEDS: lisinopril 20 mg Tablet PO (08:19)
--- NOTE | 2023-12-25 09:52 | P.PN_ITS ---
Subjective 2 Subjective: Patient is doing well today without any complaints. He states I feel so much better since my stent . The numbness of both of his arms has resolved. 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 He is taking aspirin and plavix. Wrist is without evidence of hematoma. Soft 2+ radial pulse no pain to the area. Blood pressure was a little high this morning but overall is controlled. Medications: Reviewed: Yes Medication Review Details: Patient is on Plavix 75 g p.o. daily. The dose of the Lipitor was increased to 80 mg p.o. daily. I also added carvedilol 12.5 mg p.o. twice daily. Vitals/I&O/Wt Last Vital Signs Temp 97.3 F L 12/25/23 07:36 Pulse 78 12/25/23 07:36 Resp 18 12/25/23 07:36 BP 137/95 12/25/23 07:36 Pulse Ox 96 12/25/23 07:36 O2 Del Method Room Air 12/25/23 07:36 12/24/23 12/25/23 12/25/23 22:59 06:59 14:59 Intake Total 360 / 720 120 / 120 Balance 360 / 720 120 / 120 Weight last 48 hrs Weight 216 lb 12.8 oz Weight 219 lb Weight 214 lb Weight 214 lb Physical Exam 2 Narrative: General: No apparent distress, healthy appearing, well nourished Neck: No carotid bruit bilaterally Muskuloskeletal: Full ROM Lymphatic: no lymphedema noted Respiratory: Normal respiratory effort, clear to auscultation bilaterally throughout all lung gómez, no use of accessory muscles Cardio: No JVD, regular rate, regular rhythm, S1 S2 normal, no murmurs, peripheral pulses 2+ throughout Extremities: Full ROM, normal, normal capillary refill, no cyanosis or edema Neuro: Alert and oriented x4, no focal motor deficits Psych: Affect normal, denies suicidal ideation, mental status grossly normal Skin: Right wrist from angiogram puncture site without evidence of active bleeding 2+ radial pulses bilaterally no signs of hematoma patient has full function in the area Data 12/25/23 03:02 12/25/23 03:02 Other Labs: Laboratory Last Values WBC 9.57 10^3/uL (3.29-11.43) 12/25/23 03:02 RBC 4.92 10^6/uL (3.85-5.65) 12/25/23 03:02 Hgb 15.20 g/dL (11.27-16.99) 12/25/23 03:02 Hct 44.6 % (37-53) 12/25/23 03:02 MCV 90.7 fl (82-101) 12/25/23 03:02 MCH 30.9 pg (27-33) 12/25/23 03:02 MCHC 34.1 g/dL (30-55) 12/25/23 03:02 RDW 11.8 % (12.1-15.1) L 12/25/23 03:02 Plt Count 252 10^3/cmm (157-399) 12/25/23 03:02 MPV 8.7 fL (7.4-10.4) 12/25/23 03:02 Neut % (Auto) 62.5 % 12/25/23 03:02 Lymph % (Auto) 25.0 % 12/25/23 03:02 Oliver % (Auto) 9.8 % 12/25/23 03:02 Eos % (Auto) 1.4 % 12/25/23 03:02 Baso % (Auto) 1.0 % 12/25/23 03:02 Neut # (Auto) 5.98 10^3/uL (1.8-7.7) 12/25/23 03:02 Lymph # (Auto) 2.4 10^3/uL (0.8-4.8) 12/25/23 03:02 Oliver # (Auto) 0.9 10^3/uL (0.2-0.9) 12/25/23 03:02 Eos # (Auto) 0.1 10^3/uL (0.0-0.8) 12/25/23 03:02 Baso # (Auto) 0.1 10^3/uL (0.0-0.1) 12/25/23 03:02 Nucleated RBC % (auto) 0 % 12/25/23 03:02 Nucleated RBCs # 0.0 /100WBC 12/25/23 03:02 PT 11.90 SECONDS (12.1-14.9) L 12/23/23 18:45 INR 0.85 (0.8-1.2) 12/23/23 18:45 Sodium 134 mmol/L (136-145) L 12/25/23 03:02 Potassium 4.3 mmol/L (3.5-5.1) 12/25/23 03:02 Chloride 101 mmol/L (98-107) 12/25/23 03:02 Carbon Dioxide 23 mmol/L (22-29) 12/25/23 03:02 Anion Gap 14.3 (5-19) 12/25/23 03:02 BUN 12 mg/dL (6-20) 12/25/23 03:02 Creatinine 0.8 mg/dL (0.7-1.2) 12/25/23 03:02 GFR Calculation 102.7 mL/min (90-130) 12/25/23 03:02 Glucose 106 mg/dL (65-115) 12/25/23 03:02 Estimat Average Glucose 111 12/23/23 18:45 Hemoglobin A1c 5.5 % (4.0-6.0) 12/23/23 18:45 Calculated Osmolality 278 mOsm/kg (285-295) L 12/25/23 03:02 Calcium 8.7 mg/dL (8.5-10.5) 12/25/23 03:02 Total Bilirubin 0.6 mg/dL (0.15-1.2) 12/25/23 03:02 AST 24 U/L (0-40) 12/25/23 03:02 ALT 41 U/L (0-41) 12/25/23 03:02 Alkaline Phosphatase 58 U/L (40-130) 12/25/23 03:02 Troponin T Baseline 12 ng/L (0-15) 12/23/23 18:45 Troponin T 120 Minute 26.71 ng/L (0-15) H 12/23/23 20:42 Delta Troponin T 14.71 ABS# (0-10) H* 12/23/23 20:42 Troponin T Hi Sens 6Hr 19.51 ng/L (0-15) H 12/24/23 03:44 Troponin T Hi Sens 6Hr Delta 7.51 ng/L (0-12) 12/24/23 03:44 Total Protein 7.0 g/dL (6.6-8.7) 12/25/23 03:02 Albumin 4.3 g/dL (3.5-5.2) 12/25/23 03:02 Globulin 2.7 g/dL (1.3-4.6) 12/25/23 03:02 Triglycerides 221 mg/dL (0-150) H 12/23/23 18:45 Cholesterol 256 mg/dL (0-200) H 12/23/23 18:45 LDL Cholesterol, Calc 157 mg/dL (50-129) H 12/23/23 18:45 HDL Cholesterol 55 mg/dL (60-100) L 12/23/23 18:45 LDL/HDL Ratio 2.85 RATIO (0.00-3.22) 12/23/23 18:45 Cholesterol/HDL Ratio 4.65 mg/dL (1.0-5.00) 12/23/23 18:45 Lipase 47 U/L (13-60) 12/23/23 18:45 Other data: Echo complete CONCLUSIONS Normal left ventricular size and systolic function, EF 65%.. Mild left ventricular hypertrophy. Grade I/IV diastolic dysfunction (abnormal relaxation filling pattern), normal to mildly elevated filling pressures. Trace of mitral and tricuspid regurgitation Estimated pulmonary artery peak systolic pressure within normal limits. There is no pericardial effusion. There are no intracardiac masses. No similar previous studies are available for comparison Left Heart Cath Conclusions 1. Successful PCI to mid LAD. 2 wires were inserted 1 in diagonal branch since it is a bifurcating lesion other in mid LAD. Mid LAD lesion was prepared with 2.0 x 12 mm Trek balloon, followed by deployment of Jose Antonio] [3.0x 18 mm stent posted at high MALLY of 12 mm. Stent was then post-dilated with serial dilatation of NC Euphora 3.5 x 12 at 12 MALLY in its entire length to ensure proper approximation. Excellent angiographic result with MARIA DEL CARMEN-3 flow was achieved. Diagonal branch was not pinched and widely open at the end of the case. A&P Assessment and plan (1) Acute coronary syndrome: Resolved, s/p stenting to the mid lad. Continue Plavix 75 mg daily with aspirin. Patient denies any chest pain. Symptoms have resolved. (2) Benign hypertension: Hypertension overall is well controlled at this time. I have instructed the patient to keep a blood pressure log over the next week or so and bring it into the clinic for review. Continue amlodipine, carvedilol, lisinopril. Lifestyle modifications were given to the patient including DASH and low sodium diet with exercise as well. (3) Dyslipidemia: Patient was found to have elevated LDL of 156. Statin recently increased to atorvastatin 80mg daily. Will have a repeat lipid profile in 2 months. Also will do a liver profile at that time. (4) History of alcohol abuse: Strongly advised to quit drinking. Plan Patient is doing well from a cardiac standpoint. Wrist puncture site looks good. Continue aspirin and plavix, statin, and bp medications. Plan is for patient to go home. F/U in the clinic in 7-10 days with blood pressure log. Discussed with patient no heavy lifting more than a gallon of milk. No driving for 3 days. Monitor for and report signs or symptoms of bleeding. Monitor for and report s/s of infection such as fever 101 or greater, swelling, redness or pain to the wrist. Appointment the [facility] in a week to see the nurse practitioner. Appoint with me in the office in a month. Attestations 2 Medical Necessity Statement*: Patient may be discharged from cardiac standpoint. Coding Level of Care Code 15719 Diagnoses Acute coronary syndrome I24.9 Benign hypertension I10 Dyslipidemia E78.5 History of alcohol abuse F10.11
--- NOTE | 2023-12-25 11:19 | P.DS_ITS ---
Discharge Providers Date of Admission: 12/23/23 21:45 Date of Discharge: December 25, 2023 Attending Provider at Admission: Giorgi Ruff MD Attending Provider at Discharge: Ashley Mcgowan MD Primary Care Provider: Tessa Nair MD Diagnoses at Discharge Discharge Diagnosis (1) Acute coronary syndrome: Status: Acute (2) Benign hypertension: Status: Acute (3) Dyslipidemia: Status: Acute (4) History of alcohol abuse: Status: Acute Reason for Visit Reason for Visit: High B/P, arm numbness sent by [facility] Hospital Course Rhett Dhaliwal is a 48 year old male with a past medical history significant for hypertension who presents emergency department with chest pressure. Patient reports initial symptoms started . They have been intermittent with about 5 episodes occurring since that time. He was evaluated by cardiology and features were very concerning for acute coronary syndrome, NSTEMI. [facility], [facility] where he received a stent to the LAD. His symptoms were resolved after placement of stent. He is doing well today with no complaints. The echocardiogram revealed normal LV size and ejection fraction. Mild card ventricular to light hypertrophy. No significant wall motion normalities. Features of grade 1 left ventricular ejection fraction's function. He is being discharged today in improved condition with recommendations to continue aspirin and plavix, statin, and bp medications. F/U in the cardiology clinic in 7-10 days with blood pressure log. 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 echo complete* [id number] Routine Ultrasound 12/24/23 22:35 Completed Pending at discharge Category Date Time Status Complete Blood Count w/Auto AM LABS Lab 12/26/23 04:00 Ordered Complete Blood Count w/Auto AM LABS Lab 12/27/23 04:00 Ordered Comprehensive Metabolic Panel AM LABS Lab 12/26/23 04:00 Ordered Comprehensive Metabolic Panel AM LABS Lab 12/27/23 04:00 Ordered Radiology Impressions Chest X-Ray 12/23/23 18:28 IMPRESSION: No radiographically apparent acute cardiopulmonary disease. Laboratory Results WBC 9.57 10^3/uL (3.29-11.43) 12/25/23 03:02 RBC 4.92 10^6/uL (3.85-5.65) 12/25/23 03:02 Hgb 15.20 g/dL (11.27-16.99) 12/25/23 03:02 Hct 44.6 % (37-53) 12/25/23 03:02 MCV 90.7 fl (82-101) 12/25/23 03:02 MCH 30.9 pg (27-33) 12/25/23 03:02 MCHC 34.1 g/dL (30-55) 12/25/23 03:02 RDW 11.8 % (12.1-15.1) L 12/25/23 03:02 Plt Count 252 10^3/cmm (157-399) 12/25/23 03:02 MPV 8.7 fL (7.4-10.4) 12/25/23 03:02 Neut % (Auto) 62.5 % 12/25/23 03:02 Lymph % (Auto) 25.0 % 12/25/23 03:02 Haines % (Auto) 9.8 % 12/25/23 03:02 Eos % (Auto) 1.4 % 12/25/23 03:02 Baso % (Auto) 1.0 % 12/25/23 03:02 Neut # (Auto) 5.98 10^3/uL (1.8-7.7) 12/25/23 03:02 Lymph # (Auto) 2.4 10^3/uL (0.8-4.8) 12/25/23 03:02 Haines # (Auto) 0.9 10^3/uL (0.2-0.9) 12/25/23 03:02 Eos # (Auto) 0.1 10^3/uL (0.0-0.8) 12/25/23 03:02 Baso # (Auto) 0.1 10^3/uL (0.0-0.1) 12/25/23 03:02 Nucleated RBC % (auto) 0 % 12/25/23 03:02 Nucleated RBCs # 0.0 /100WBC 12/25/23 03:02 PT 11.90 SECONDS (12.1-14.9) L 12/23/23 18:45 INR 0.85 (0.8-1.2) 12/23/23 18:45 Sodium 134 mmol/L (136-145) L 12/25/23 03:02 Potassium 4.3 mmol/L (3.5-5.1) 12/25/23 03:02 Chloride 101 mmol/L (98-107) 12/25/23 03:02 Carbon Dioxide 23 mmol/L (22-29) 12/25/23 03:02 Anion Gap 14.3 (5-19) 12/25/23 03:02 BUN 12 mg/dL (6-20) 12/25/23 03:02 Creatinine 0.8 mg/dL (0.7-1.2) 12/25/23 03:02 GFR Calculation 102.7 mL/min (90-130) 12/25/23 03:02 Glucose 106 mg/dL (65-115) 12/25/23 03:02 Estimat Average Glucose 111 12/23/23 18:45 Hemoglobin A1c 5.5 % (4.0-6.0) 12/23/23 18:45 Calculated Osmolality 278 mOsm/kg (285-295) L 12/25/23 03:02 Calcium 8.7 mg/dL (8.5-10.5) 12/25/23 03:02 Total Bilirubin 0.6 mg/dL (0.15-1.2) 12/25/23 03:02 AST 24 U/L (0-40) 12/25/23 03:02 ALT 41 U/L (0-41) 12/25/23 03:02 Alkaline Phosphatase 58 U/L (40-130) 12/25/23 03:02 Troponin T Baseline 12 ng/L (0-15) 12/23/23 18:45 Troponin T 120 Minute 26.71 ng/L (0-15) H 12/23/23 20:42 Delta Troponin T 14.71 ABS# (0-10) H* 12/23/23 20:42 Troponin T Hi Sens 6Hr 19.51 ng/L (0-15) H 12/24/23 03:44 Troponin T Hi Sens 6Hr Delta 7.51 ng/L (0-12) 12/24/23 03:44 Total Protein 7.0 g/dL (6.6-8.7) 12/25/23 03:02 Albumin 4.3 g/dL (3.5-5.2) 12/25/23 03:02 Globulin 2.7 g/dL (1.3-4.6) 12/25/23 03:02 Triglycerides 221 mg/dL (0-150) H 12/23/23 18:45 Cholesterol 256 mg/dL (0-200) H 12/23/23 18:45 LDL Cholesterol, Calc 157 mg/dL (50-129) H 12/23/23 18:45 HDL Cholesterol 55 mg/dL (60-100) L 12/23/23 18:45 LDL/HDL Ratio 2.85 RATIO (0.00-3.22) 12/23/23 18:45 Cholesterol/HDL Ratio 4.65 mg/dL (1.0-5.00) 12/23/23 18:45 Lipase 47 U/L (13-60) 12/23/23 18:45 Vitals Last Vital Signs Temp 97.3 F L 12/25/23 07:36 Pulse 80 12/25/23 10:45 Resp 18 12/25/23 07:36 BP 137/95 12/25/23 07:36 Pulse Ox 96 12/25/23 10:45 O2 Del Method Room Air 12/25/23 10:45 Discharge Plan Discharge Patient Disposition: Home Condition: Stable Prescriptions: New atorvastatin 40 mg Tablet 80 mg PO BEDTIME 30 Days Qty: 30 0RF carvedilol 12.5 mg Tablet 12.5 mg PO BID 30 Days Qty: 60 0RF aspirin 81 mg Tablet,Delayed Release (Dr/Ec) 81 mg PO DAILY 30 Days Qty: 30 0RF clopidogrel 75 mg Tablet 75 mg PO DAILY 30 Days Qty: 30 0RF Continued benazepril 20 mg tablet 20 mg PO BID Discharge Orders: Discharge Order (Routine); Ordered 12/25/23 Ordered By: Ashley Mcgowan Referrals: Tessa Nair MD [Primary Care Provider] - Beatrice Preciado MD [Physician] - 1 month Hetal Milner FNP [Nurse Practitioner] - 1 week Discharge Diet: Cardiac Patient Instructions: Opioid Safety Discharge Attestations Time Spent in Discharge Care*: greater than 30 min Quality Metrics Clinical Quality Measures [ Acute Myocardial Infaction { Clinical Trial Participant: No; Contraindication to aspirin: None; Aspirin prescribed; Contraindication to statin: None; Statin prescribed; Contraindication to PCI: None; PCI performed;}] Coding Level of Care Code Acute Code for Chg Fwd Diagnoses Acute coronary syndrome I24.9 Benign hypertension I10 Dyslipidemia E78.5 History of alcohol abuse F10.11
--- NOTE | 2023-12-25 12:50 | PC.NURSE ---
Discharge Note Patient discharged to home via POV accompanied by spouse. 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 Mobile pharmacy medications and/or prescriptions provided. Belongings/home medications returned.
== END 2023-12-25 12:40 | disposition home or self-care (01) ==
LOC: ER 21:34 → CSU 21:45
PROVIDERS: Internal Medicine; Internal Medicine Cardiovascular Disease; Admitting Provider Internal Medicine; Emergency Provider Emergency Medicine; PCP Family Medicine; Visit Provider Student in an Organized Health Care Education/Training Program
DX: I21.4 Non-ST elevation (NSTEMI) myocardial infarction (principal); I25.10 Atherosclerotic heart disease of native coronary artery without angina pectoris; I10 Essential (primary) hypertension; E78.5 Hyperlipidemia, unspecified; F10.11 Alcohol abuse, in remission; Z79.02 Long term (current) use of antithrombotics/antiplatelets
CPT/HCPCS: 36415; 71045; 80053; 80061; 83036; 83690; 84484; 85025; 85610; 93005; 93306; 93458; 96372; 96376; 99152; 99153; 99285; C1725; C1769; C1874; C1887; C1894; C9600; G0378; J1644; J1650; J2250; J3010; J3490; J7030; Q0163; Q9967

== ENCOUNTER → 2024-03-28 15:36 | Outpatient (BNVA) | payer OTHER, SELFPAY | PROVIDERS: PCP Family Medicine; Visit Provider Nurse Practitioner Family | DX: R07.9 Chest pain, unspecified (principal) | CPT/HCPCS: 93005 ==